=== PATIENT | female | born 1975 | race African-American/Black ===

== ENCOUNTER 2017-09-01 12:24 | Emergency (ER) | payer SELFPAY ==
[~2017-09-01] VITALS: Ht 175.3 cm; Wt 109.0 kg
[2017-09-01 14:35] LABS: EOSINOPHILS % 0.8 % (0.0-5.0); HEMATOCRIT. 39.5 % (36.0-48.0); MEAN CORPUSCULAR VOLUME 97.6 fL (81.0-99.0); MEAN PLATELET VOLUME 8.1 fl (7.4-10.4); MONOCYTES % 7.4 % (2.0-8.0); NEUTROPHILS % 49.8 % (40.0-76.0); PLATELET 308 x1000/uL (130-400); RED BLOOD CELL COUNT 4.05 mill/uL (4.2-5.4); RED CELL DISTRIBUTION WIDTH 13.5 % (11.6-14.6)
[2017-09-01 14:42] LABS: CHLORIDE 104 mEq/L (98-107); PROTHROMBIN TIME 10.2 sec (9.4-11.6)
[2017-09-01 14:50] LABS: BETA HYDROXYBUTYRATE 0.1 mMol/L (0.0-0.3)
[2017-09-01] MEDS ORDERED: SODIUM CHLORIDE 0.9% 1,000 ML IV ONE (15:23)
[2017-09-01] MEDS ORDERED: ACETAMINOPHEN 325MG TABLET PO STA (15:23)
[2017-09-01] MEDS ORDERED: ONDANSETRON HCL 4MG/2ML VIAL IV STA (15:23)
[2017-09-01 15:35] LABS: CLARITY URINE TURBID (CLEAR); COLOR URINE RED (YELLOW); KETONES URINE NEGATIVE (NEGATIVE); LEUKOCYTE ESTERASE URINE 3+ (NEGATIVE); NITRITE URINE NEGATIVE (NEGATIVE); OCCULT BLOOD URINE 3+ (NEGATIVE); PROTEIN URINE 2+ (NEGATIVE)
[2017-09-01] MEDS ORDERED: KETOROLAC 30MG/ML VIAL IV ONE (17:30)
[2017-09-01 19:03] VITALS: BP 155/74
[2017-09-04 08:20] LABS: CHLAMYDIA TRACHOMATIS NAA Negative (Negative); NEISSERIA GONORRHOEAE NAA Negative (Negative)
== END 2017-09-01 19:05 | disposition home or self-care (01) ==
LOC: ER 16:33
DX: N39.0 Urinary tract infection, site not specified (principal); N76.0 Acute vaginitis; E11.9 Type 2 diabetes mellitus without complications; R03.0 Elevated blood-pressure reading, without diagnosis of hypertension; Z91.14 Patient's other noncompliance with medication regimen; Z98.890 Other specified postprocedural states; Z88.0 Allergy status to penicillin
CPT/HCPCS: 36415; 76830; 76856; 80053; 81003; 81025; 82010; 83690; 85025; 85610; 87077; 87086; 87186; 87210; 87491; 87591; 96374; 96375; 99285; J1885; J2405; J7030; Z7610